=== PATIENT | female | born 1975 | race Caucasian/White ===

== ENCOUNTER 2018-12-14 14:16 | Emergency (ER) | payer MEDICAID ==
[~2018-12-14] VITALS: Ht 152.4 cm; Wt 119.7 kg
[2018-12-14 14:38] VITALS: Ht 152.4 cm; Wt 119.7 kg
[2018-12-14 16:45] VITALS: BP 124/73
== END 2018-12-14 16:45 | disposition home or self-care (01) ==
LOC: ED 14:16
DX: I80.3 Phlebitis and thrombophlebitis of lower extremities, unspecified (principal); L03.116 Cellulitis of left lower limb; Z98.890 Other specified postprocedural states
CPT/HCPCS: J1885; Q0092